=== PATIENT | female | born 1945 | race Caucasian/White ===

== ENCOUNTER 2017-01-25 23:16 | Emergency (ER) | payer MEDICARE ==
[~2017-01-25] VITALS: Ht 172.7 cm; Wt 112.3 kg
[2017-01-25] MEDS ORDERED: ESOM40CA PO (23:53)
[2017-01-25] MEDS ORDERED: SPIR25TA3 PO (23:53)
[2017-01-25] MEDS ORDERED: LISI-167 PO (23:53)
[2017-01-26] MEDS ORDERED: SODIUM CHLORIDE FLUSH 10ML SYR IVF ONE
[2017-01-26] MEDS ORDERED: CLINDAMYCIN PMX 600MG/50ML 50 ML IV ONE
[2017-01-26] MEDS ORDERED: CLINDAMYCIN PMX 600MG/50ML 50 ML ONE (00:15)
[2017-01-26 00:23] LABS: BLOOD UREA NITROGEN 18 mg/dL (7-18)
[2017-01-26 00:54] VITALS: BP 160/88
== END 2017-01-26 02:31 | disposition home or self-care (01) ==
LOC: ED 01-26 02:19
DX: L03.115 Cellulitis of right lower limb (principal); K21.9 Gastro-esophageal reflux disease without esophagitis; I10 Essential (primary) hypertension
CPT/HCPCS: 36415; 80048; 82040; 85025; 87040; 96365

== ENCOUNTER → 2017-02-12 | Outpatient (CLI) | payer MEDICARE ==
[~2017-02-12] MED LIST: ESOM40CA PO; LISI-167 PO; SPIR25TA3 PO
== END | disposition home or self-care (01) ==
LOC: CFH 08:09
PROVIDERS: ATTEND Nurse Practitioner Family
DX: D24.2 Benign neoplasm of left breast (principal)
CPT/HCPCS: G0204

== ENCOUNTER → 2019-10-30 | Outpatient (CLI) | payer MEDICARE ==
[~2019-10-30] MED LIST changes: -SPIR25TA3 PO; +SPIR25TA5 PO
== END | disposition home or self-care (01) ==
LOC: CVU 06:20
PROVIDERS: ATTEND Internal Medicine Cardiovascular Disease
DX: I06.0 Rheumatic aortic stenosis (principal); I05.1 Rheumatic mitral insufficiency; I25.10 Atherosclerotic heart disease of native coronary artery without angina pectoris; R06.02 Shortness of breath; I11.9 Hypertensive heart disease without heart failure; M54.5 Low back pain; R59.1 Generalized enlarged lymph nodes
CPT/HCPCS: 75571; 93306; 93975